=== PATIENT | female | born 1955 | race Caucasian/White ===

== ENCOUNTER 2017-09-25 15:02 | Emergency (ER) | payer BC ==
[~2017-09-25] VITALS: Ht 154.9 cm; Wt 75.3 kg
[2017-09-25] MEDS ORDERED: ZOFRAN ODT4 MG PO (15:40)
[2017-09-25] MEDS ORDERED: LORTAB 5-325 M1 EACH PO (15:40)
[2017-09-25 16:36] VITALS: BP 136/81
== END 2017-09-25 16:37 | disposition home or self-care (01) ==
LOC: EME 15:02
PROC: 2W39X1Z Immobilization of Left Upper Extremity using Splint (ICD-10-PCS; principal; 2017-09-25)
DX: S52.572A Other intraarticular fracture of lower end of left radius, initial encounter for closed fracture (principal); S52.602A Unspecified fracture of lower end of left ulna, initial encounter for closed fracture; W01.0XXA Fall on same level from slipping, tripping and stumbling without subsequent striking against object, initial encounter; Z88.2 Allergy status to sulfonamides
CPT/HCPCS: 73110; 99281; 99284